=== PATIENT | female | born 1975 | race Caucasian/White ===

== ENCOUNTER 2023-04-15 12:02 | Outpatient (OUT) | payer OTHER, SELFPAY ==
[2023-04-15 12:33] LABS: Basophils Absolute Auto 0.1 10^3/uL (0.0-0.1); Basophils Percent Auto 0.4 % (0.2-2.0); Eosinophils Absolute Auto 0.4 10^3/uL (0.0-0.7); Eosinophils Percent Auto 2.7 % (0.9-7.0); Hemoglobin 13.9 g/dL (12.0-16.0); Immature Granulocytes Abs Auto 0.12 10^3/uL (0.00-0.03); Immature Granulocytes Pct Auto 0.8 % (0.0-0.5); Lymphocytes Absolute Auto 4.7 10^3/uL (1.2-3.8); Lymphocytes Percent Auto 29.9 % (20.5-60.0); Mean Corpuscular HGB Conc 31.6 g/dL (29.9-35.2); Mean Corpuscular Hemoglobin 27.5 pg (26.7-34.0); Mean Corpuscular Volume 87.1 fL (81.0-99.0); Mean Platelet Volume 10.6 fL (9.5-13.5); Monocytes Absolute Auto 1.4 10^3/uL (0.3-0.8); Monocytes Percent Auto 8.7 % (1.7-12.0); Neutrophils Percent Auto 57.5 % (43.0-75.0); Platelet Count 444 10^3/uL (150-450); Red Blood Count 5.05 10^6/uL (4.20-5.40); Red Cell Distribution Width 14.5 % (11.0-15.0); White Blood Count 15.7 10^3/uL (4.0-11.0)
[2023-04-15 13:17] LABS: Estimated Average Glucose 266 mg/dL; Glycohemoglobin A1C 10.9 % (4.5-6.2)
[2023-04-15 13:39] LABS: Alanine Aminotransferase 37 U/L (14-59); Albumin Globulin Ratio 0.9; Albumin Level 3.3 g/dL (3.4-5.0); Alkaline Phosphatase 144 U/L (46-116); Anion Gap 14.8; Aspartate Amino Transferase 27 U/L (15-37); BUN Creatinine Ratio 8.2; Bilirubin Total 0.3 mg/dL (0.2-1.0); Calcium 9.4 mg/dL (8.5-10.1); Carbon Dioxide 30.8 mmol/L (21.0-32.0); Chloride 98 mmol/L (98-107); Chol HDL Ratio 4.2; Cholesterol 139 mg/dL (<=200); Estimated GFR (African America >60 (>=60); Estimated GFR (Non-African Ame >60 (>=60); Free T3 3.22 pg/mL (2.18-3.98); Globulin 3.5 g/dL; Glucose 197 mg/dL (74-106); HDL Cholesterol 33 mg/dL (40-60); Potassium 4.6 mmol/L (3.5-5.1); Sodium 139 mmol/L (136-145); Thyroid Stimulating Hormone 2.946 uIU/mL (0.358-3.740); Total Protein 6.8 g/dL (6.4-8.2); Triglycerides 258 mg/dL (<=150); VLDL CHOLESTEROL 51.6 mg/dL
[2023-04-16 12:12] LABS: Insulin 35.4 uIU/mL (2.6-24.9)
== END 2023-04-15 12:03 | disposition home or self-care (01) ==
LOC: LAB 12:06
PROVIDERS: PCP Family Medicine; Visit Provider Family Medicine
DX: R31.0 Gross hematuria (principal); R06.00 Dyspnea, unspecified; E11.9 Type 2 diabetes mellitus without complications; K21.9 Gastro-esophageal reflux disease without esophagitis; I87.2 Venous insufficiency (chronic) (peripheral); I47.1 Supraventricular tachycardia; Z12.12 Encounter for screening for malignant neoplasm of rectum; D64.9 Anemia, unspecified; E55.9 Vitamin D deficiency, unspecified; I11.0 Hypertensive heart disease with heart failure; I50.30 Unspecified diastolic (congestive) heart failure
CPT/HCPCS: 36415; 80053; 80061; 82306; 83036; 83525; 83540; 83880; 84436; 84443; 84481; 85025

== ENCOUNTER 2024-03-25 12:48 | Outpatient (OUT) | payer OTHER, SELFPAY ==
--- NOTE | 2024-03-25 12:50 | VEIN_ITS ---
Patient Name: DARRIAN QUIROZ MR#: [id number] : 1975 Exam Date: 03/25/2024 Ordering Doctor: DR HELIO STEWART M.D. RADIOLOGY REPORT PROCEDURE: VC EXT VENOUS REFLUX SHAWANDA LMTD COMPARISON: None. INDICATIONS: R60.0 Bilateral leg edema TECHNIQUE: Duplex imaging of the lower extremity to assess the deep and superficial venous system for the presence of deep or superficial venous incompetence and to document the location and severity of disease. The study includes evaluation of the great saphenous vein (GSV), anterior accessory saphenous vein (AASV) and small saphenous vein (SSV). Patient scanned in reverse Trendelenburg and standing. FINDINGS: RIGHT LOWER EXTREMITY: Saphenofemoral Junction Reflux: Yes 7.1mm 2.0 sec GSV: Diam (mm) Reflux/ Time (sec) Proximal Thigh 7.2 Yes 1.6 Mid Thigh 4.7 Yes 1.5 Distal Thigh 4.7 No Prox Calf 3.2 No Mid Calf 2.8 No Saphenopopliteal Junction Reflux: 5.5mm Yes 0.5 SSV: Proximal Calf 3.5 Yes 0.5 Mid Calf 2.6 No AASV: Proximal Thigh 5.5 Yes 0.7 Mid Thigh 4.4 Yes 0.7 Distal Thigh Thrombi: No acute or chronic thrombus visualized Compressibility: Normal Flow: Deep vein reflux visualized in rt CFV for 1.6s and DFV for 0.7s. Preforator: Dist/med calf 2.4mm with 0.6s reflux. Mid/med thigh 2.6mm with 0.5s reflux. Tech Note: Incompetent GSV and AASV. Patent varicose vein mid/med calf 4.6mm with 0.7s reflux. Patent varicose vein prox/med calf 3.5mm with 1.2s reflux. Patent varicose vein arising off of mid/med thigh AASV. 3.4mm with 0.8s reflux. LEFT LOWER EXTREMITY: Saphenofemoral Junction Reflux: mm sec GSV: Diam (mm) Reflux/Time (sec) Proximal Thigh N/A Mid Thigh N/A Distal Thigh N/A Prox Calf N/A Mid Calf N/A Saphenopopliteal Junction Relux: 3.5 mm No SSV: Proximal Calf 2.1 Yes 0.9 Mid Calf 2.1 No AASV: Proximal Thigh 4.2 No Mid Thigh 2.5 No Distal Thigh Thrombi: No acute or chronic thrombus visualized Compressibility: Normal Flow: Normal Tripoler: Dist/med calf 4.5mm with 0.9s reflux. Tech Note: GSV was previously treated with EVLT in 2021. Patent varicose vein mid/med calf 4.5mm with 0.7s reflux. Patent varicose vein prox/med calf 3.5mm with 0.6s reflux. CONCLUSION: 1. Abnormally dilated and incompetent right great saphenous vein with associated branch saphenous varicosities. 2. Left calf awning erector vein feeding a large dilated and incompetent varicosity; corresponding to patient's area of pain. Dictated by: Bret Francis M.D. on 03/25/2024 at 13:45 Approved by: Bret Francis M.D. on 03/25/2024 at 14:54
--- NOTE | 2024-03-25 12:52 | VEIN_ITS ---
Patient Name: DARRIAN QUIROZ MR#: [id number] : 1975 Exam Date: 03/25/2024 Ordering Doctor: DR HELIO STEWART M.D. RADIOLOGY REPORT PROCEDURE: VC FACILITY EST COMPREHENSIVE [facility]IN [facility] - OFFICE VISIT INITIAL COMPARISON: None. PROGRESS NOTES: [age] year old female who presents with a 2 year history of lower extremity swelling, edema, and leg pain. The patient's left leg symptoms are worse than the right. There has been a progression of symptoms over time. This increases with prolonged leg dependency. The patient describes an improvement with rest, elevation, support stockings, and medication. The patient denies any signs and symptoms to suggest arterial ischemia. The patient describes a family history : Unknown (patient is adopted). The patient has drinking and smoking history of long-term smoking; no alcohol consumption. Patient has a past medical history significant for superficial thrombophlebitis. The patient denies a history of deep venous thrombus or pulmonary embolus. See separate history and physical for medication list. Prior treatment for varicose or spider veins. Current use of compression stockings. After review of nurse notes, history and physical exam I discussed at length the pathophysiology of venous hypertension and possible treatments, therapies and strategies available. We discussed at length the importance of elevating the lower extremities above the level of the heart, increased physical activity and compression stocking use. Ultrasound venous reflux study performed today was discussed at length with the patient. The report demonstrates abnormally dilated incompetent right great saphenous vein. Prominent incompetent java lead vein within left calf feeding a large varicosity which corresponds to patient's area of discomfort. PHYSICAL EXAM: The right leg demonstrates a few varicosities, scattered spider veins, no ulceration, mild edema, mild skin discoloration. The left leg demonstrates no significant varicosities, a few spider veins, no ulceration, no edema, mild skin discoloration. Both thighs, legs and feet were symmetrically warm to the touch. Good posterior tibial and dorsalis pedis pulses were present bilaterally. VEIN/VC Facility EST Comprehensive IMPRESSION: 1. Bilateral lower extremity venous insufficiency with a large varicose vein fed by java lead vein within the left calf corresponding to patient's area of calf pain and primary concern. 2. Bilateral lower extremity varicose veins 3. Right greater than left lower extremity subcutaneous edema 4. No flow significant arterial disease 5. CEAP: C4 a, EP, AP, IA PLAN: 1. Continued use of compression stockings 2. Elevated legs and increased physical activity symptomatic relief 3. Microfoam chemical ablation of left calf incompetent varicosity which corresponds to patient's area of concern and discomfort. 4. Patient will follow-up in future when she is ready for treatment of right leg. Nurse notes, history and physical were reviewed and confirmed, see attached forms. The nurse was present throughout the physical exam and consultation Dictated by: Bret Francis M.D. on 03/25/2024 at 14:59 Approved by: Bret Francis M.D. on 03/25/2024 at 15:06
== END 2024-03-25 12:49 | disposition home or self-care (01) ==
LOC: VC 12:49
PROVIDERS: PCP Family Medicine; Visit Provider Radiology Diagnostic Radiology
DX: R60.0 Localized edema (principal); I83.813 Varicose veins of bilateral lower extremities with pain
CPT/HCPCS: 93970; G0463

== ENCOUNTER 2024-08-02 14:57 | Outpatient (OUT) | payer OTHER, SELFPAY ==
--- NOTE | 2024-08-02 | XR_ITS ---
The [address] [address] Patient Name: DARRIAN QUIROZ MRN: [id number] date: 1975 Sex: F Assigned Patient Location: Current Patient Location: Accession/Order Number: [id number] Exam Date: 08/02/2024 14:58 Report Date: 08/05/2024 06:30 At the request of: AMELIA IBARRA Procedure: XR knee LT 4V PROCEDURE: XR knee LT 4V HISTORY: LEFT KNEE PAIN COMPARISON: None. FINDINGS: BONES:Slight narrowing of the medial joint space. Small degenerative osteophytes along the articular margins of the medial compartment and patella. SOFT TISSUES:No visible soft tissue swelling. EFFUSION:Small joint effusion. OTHER: Negative. XR/XR knee LT 4V IMPRESSION: 1. Small joint effusion and mild degenerative joint disease. Electronically authenticated by: BRADLEY JOHN Date: 08/05/2024 06:30
== END 2024-08-02 14:58 | disposition home or self-care (01) ==
LOC: EC 14:58
PROVIDERS: PCP Family Medicine; Visit Provider Student in an Organized Health Care Education/Training Program
DX: M25.562 Pain in left knee (principal); M25.462 Effusion, left knee
CPT/HCPCS: 73564

== ENCOUNTER 2024-08-18 13:53 | Outpatient (OUT) | payer OTHER, SELFPAY ==
--- NOTE | 2024-08-18 13:56 | MR_ITS ---
The [place] [id number] Patient Name: DARRIAN QUIROZ MRN: [id number] date: 1975 Sex: F Assigned Patient Location: MRI Current Patient Location: Accession/Order Number: [id number] Exam Date: 08/18/2024 14:00 Report Date: 08/20/2024 05:00 At the request of: AMELIA IBARRA Procedure: MR knee LT wo con EXAMINATION: MR knee LT wo con HISTORY: internal derangement of left knee COMPARISON: No relevant comparison available. TECHNIQUE: A complete multi-planar MRI was performed. FINDINGS: MEDIAL COMPARTMENT MEDIAL MENISCUS: No visible tear or significant degeneration. CARTILAGE: No visible defect. BONES: No marrow pathology, fracture, or significant arthropathy. MCL AND MEDIAL CAPSULE: Minimal strain of medial collateral ligament. LATERAL COMPARTMENT LATERAL MENISCUS: Small radial tear of the mid body. CARTILAGE: No visible defect. BONES: No marrow pathology, fracture, or significant arthropathy. LCL/POSTEROLAT COMPLEX: Normal lateral collateral ligament, fascicles, lateral capsule and ligaments. ANTERIOR COMPARTMENT PATELLA: No marrow pathology, fracture, or significant arthropathy. CARTILAGE: No visible defect. TENDONS: Normal. EFFUSION: Small joint effusion. ACL: Normal appearing ligament. PCL: Normal appearing ligament. MENISCOFEMORAL: Normal meniscofemoral ligaments. OTHER: Negative. MR/MR knee LT wo con IMPRESSION: 1. Minimal strain of medial collateral ligament. 2. Small radial tear involving mid body of LATERAL meniscus. 3. Small joint effusion. Electronically authenticated by: BRADLEY JOHN Date: 08/20/2024 05:00
== END 2024-08-18 13:54 | disposition home or self-care (01) ==
LOC: MRI 13:53
PROVIDERS: PCP Family Medicine; Visit Provider Student in an Organized Health Care Education/Training Program
DX: M25.562 Pain in left knee (principal); M23.92 Unspecified internal derangement of left knee; S83.282A Other tear of lateral meniscus, current injury, left knee, initial encounter; M25.462 Effusion, left knee
CPT/HCPCS: 73721

== ENCOUNTER 2024-12-13 12:43 | Outpatient (OUT) | payer OTHER, SELFPAY ==
--- NOTE | 2024-12-13 12:45 | ECG_ITS ---
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 Measurements Intervals [place] Rate: 63 P: 36 DC: 129 QRS: 19 QRSD: 93 T: 5 QT: 408 QTc: 418 Interpretive Statements SINUS RHYTHM POSSIBLE RIGHT VENTRICULAR CONDUCTION DELAY [RSR (QR) IN V1/V2] Otherwise normal ECG Compared to ECG 10/11/2019 05:35:16 No significant changes Electronically Signed On 12-13-2024 17:46:01 EDT by BARRERA FOX M.D.
--- NOTE | 2024-12-13 12:45 | XR_ITS ---
The [address] [address] Patient Name: DARRIAN QUIROZ MRN: [id number] date: 1975 Sex: F Assigned Patient Location: [facility] Current Patient Location: [facility] Accession/Order Number: [id number] Exam Date: 12/13/2024 17:26 Report Date: 12/13/2024 17:26 At the request of: AMELIA IBARRA MD Procedure: XR chest 2V Plain film chest Single view HISTORY: Presurgical assessment COMPARISON: 10/10/2019 FINDINGS: SUPPORT DEVICES: None POSTSURGICAL CHANGES: None HEART: Within normal limits PULMONARY SUKUMAR: Within normal limits MEDIASTINUM: Unremarkable LUNGS AND PLEURA: No acute lung process, pleural effusion or pneumothorax identified. BONY STRUCTURES: Intact ADDITIONAL FINDINGS None XR/XR chest 2V IMPRESSION: No acute process. Impression dictated by: Yonatan Bran M.D.12/13/2024 5:26 PM Dictation Location: [place] [address] Electronically authenticated by: [id number] Y Date: 12/13/2024 17:26
--- NOTE | 2024-12-13 13:46 | PM.PRESUREVA ---
History of Present Illness History of Present Illness Chief complaint: LATERAL MENISCUS TEAR LEFT KNEE Narrative: Mrs. Viola Hernandez is a pleasant 49-year-old female presents to presurgical testing with complaints of pain to the left knee and associated left knee swelling. She has been evaluated by Dr. Larsen and is scheduled for left knee arthroscopy with partial lateral meniscectomy on December 27, 2024 for diagnosis of tear of the lateral meniscus of the left knee. Review of Systems ROS Narrative REVIEW OF SYSTEMS: Negative except as stated in HPI, ten or more systems reviewed. Constitutional: No fever, chills, weakness ENT: No sore throat or epistaxis Cardiovascular: No edema, chest pain, palpitations, or activity intolerance Respiratory: No shortness of breath, cough, or wheezing Musculoskeletal: Complaints of left knee swelling and pain Gastrointestinal: No abdominal pain, constipation, diarrhea, or vomiting Genitourinary: No dysuria or hematuria Neurological: No numbness, tingling, weakness, or headache Psychiatric: No mood changes PFSH PFSH Medical History (Updated 12/13/24 @ 13:50 by Delma Cramer) Family history not known due to adoption ?Z78.9 - Other specified health status (ICD-10) Fusion of spine ?M43.20 - Fusion of spine, site unspecified (ICD-10) Osteoarthritis ?M19.90 - Unspecified osteoarthritis, unspecified site (ICD-10) PVD (peripheral vascular disease) ?I73.9 - Peripheral vascular disease, unspecified (ICD-10) Mitral valve prolapse ?I34.1 - Nonrheumatic mitral (valve) prolapse (ICD-10) Surgical History (Updated 12/13/24 @ 13:39 by Delma Cramer) History of knee surgery ?Z98.890 - Other specified postprocedural states (ICD-10) History of endometrial ablation ?Z98.890 - Other specified postprocedural states (ICD-10) History of section ?Z98.891 - History of uterine scar from previous surgery (ICD-10) History of carpal tunnel release ?Z98.890 - Other specified postprocedural states (ICD-10) History of foot surgery ?Z98.890 - Other specified postprocedural states (ICD-10) Social History (Updated 12/13/24 @ 13:05 by Delma Cramer) Within the past year, how often did you have a drink containing alcohol: never Score interpretation: A score less than 3 is consistent with normal alcohol consumption. Smoking status: Former smoker Do you use any of these nicotine containing products: vaping products Non-prescribed substance use: denies use Previous occupational history: [employer] Highest level of school completed/degree received: high school graduate Meds Home Medications and Allergies Home Medications ?Medication ?Instructions ?Recorded ?Confirmed ?Type aspirin 81 mg chewable tablet 81 mg PO DAILY 12/13/24 12/13/24 History (Aspirin Childrens) atorvastatin 40 mg tablet 40 mg PO BEDTIME 12/13/24 12/13/24 History buprenorphine 20 mcg/hour weekly 1 patch transdermal Q7D 12/13/24 12/13/24 History transdermal patch (Butrans) gabapentin 600 mg tablet 600 mg PO BEDTIME 12/13/24 12/13/24 History hydroxyzine HCl 25 mg tablet 25 mg PO BEDTIME 12/13/24 12/13/24 History insulin aspart U-100 100 unit/mL 1 sliding scale dose subcut TID 12/13/24 12/13/24 History (3 mL) subcutaneous pen lansoprazole 30 mg capsule,delayed 30 mg PO BID 12/13/24 12/13/24 History release meloxicam 15 mg tablet 15 mg PO PRN PRN pain 12/13/24 12/13/24 History metformin 500 mg tablet 500 mg PO BID 12/13/24 12/13/24 History metoprolol tartrate 50 mg tablet 50 mg PO Q12H 12/13/24 12/13/24 History mirtazapine 45 mg tablet 45 mg PO BEDTIME 12/13/24 12/13/24 History tizanidine 4 mg tablet 4 mg PO BEDTIME 12/13/24 12/13/24 History tolterodine 4 mg capsule,extended 4 mg PO BEDTIME 12/13/24 12/13/24 History release 24 hr Allergies Allergy/AdvReac Type Severity Reaction Status Date / Time cephalexin (From Keflex) Allergy Intermediate Hives Verified 12/13/24 12:56 erythromycin base Allergy Intermediate Hives Verified 12/13/24 12:56 Penicillins Allergy Intermediate Hives Verified 12/13/24 12:56 Sulfa (Sulfonamide Allergy Intermediate Hives Verified 12/13/24 12:56 Antibiotics) Exam Narrative Exam Narrative: Constitutional: Awake, alert, comfortable, well-appearing, nontoxic, interactive, vital signs as charted Head: Normocephalic, atraumatic Eyes: Conjunctiva and lids normal to inspection, pupils normal ENT: Tympanic membranes pearly palma, nonerythematous, noninjected, naris patent, posterior oropharynx clear, oral mucosa moist Neck: Supple, normal appearance, normal range of motion, no meningeal signs, no lymphadenopathy Respiratory: No respiratory distress, breath sounds clear Cardiovascular: Regular rate and rhythm, strong and regular heart tones Abdomen: Nontender, normal bowel sounds, soft, no CVA tenderness Musculoskeletal: Antalgic gait favoring left lower extremity tenderness with palpation to the left medial joint line pain with extension of the left knee. She also has notable left lower extremity 1+ pitting edema and a history of peripheral vascular disease to the left lower extremity Skin: No rashes or induration, no lesions, only visible skin inspected Neuro: No neurological deficits, normal sensation Psychiatric: Oriented ?3, normal affect Assessment and Plan Assessment and Plan (1) Tear of lateral meniscus of left knee: Plan Left knee arthroscopy with partial lateral meniscectomy scheduled with Dr. Larsen on 12/27/2024
[2024-12-13 13:55] LABS: Hematocrit 37.5 % (36.0-48.0); Hemoglobin 12.2 g/dL (12.0-16.0); Mean Corpuscular HGB Conc 32.5 g/dL (29.9-35.2); Mean Corpuscular Hemoglobin 29.5 pg (26.7-34.0); Mean Corpuscular Volume 90.8 fL (81.0-99.0); Mean Platelet Volume 10.1 fL (9.5-13.5); Platelet Count 353 10^3/uL (150-450); Red Blood Count 4.13 10^6/uL (4.20-5.40); Red Cell Distribution Width 14.6 % (11.0-15.0); White Blood Count 12.8 10^3/uL (4.0-11.0)
[2024-12-13 14:26] LABS: Anion Gap 11.5; BUN Creatinine Ratio 9.9; Calcium 8.9 mg/dL (8.5-10.1); Carbon Dioxide 29.5 mmol/L (21.0-32.0); Chloride 107 mmol/L (98-107); Estimated GFR (African America >60 (>=60 mL/min/1.73m^2); Estimated GFR (Non-African Ame >60 (>=60 mL/min/1.73m^2); Glucose 128 mg/dL (74-106); Sodium 144 mmol/L (136-145)
[2024-12-13 14:34] LABS: Basophils Abs Manual 0.12 10^3/uL (0.00-0.10); Eosinophils Absolute Manual 0.64 10^3/uL (0.00-0.70); Lymphocytes Absolute Manual 5.24 10^3/uL (1.20-3.80); Monocytes Absolute Manual 0.51 10^3/uL (0.30-0.80); Segmented Neut Absolute Manual 6.27 10^3/uL (1.4-6.5)
== END 2024-12-13 12:44 | disposition home or self-care (01) ==
LOC: PST 12:44
PROVIDERS: PCP Family Medicine; Visit Provider Student in an Organized Health Care Education/Training Program
DX: Z01.810 Encounter for preprocedural cardiovascular examination (principal); Z01.812 Encounter for preprocedural laboratory examination; Z01.818 Encounter for other preprocedural examination; S83.282A Other tear of lateral meniscus, current injury, left knee, initial encounter
CPT/HCPCS: 71046; 80048; 85007; 85027; 93005; G0463

== ENCOUNTER 2024-12-27 09:35 | Day surgery (SDC) | payer OTHER, SELFPAY ==
[2024-12-13 13:05] VITALS: BP 151/87; PULSE 73; TEMP 36.3; O2SAT 98; BMI 33.0
[2024-12-27] VITALS (8 sets, daily range): BP systolic 134–155; BP diastolic 75–104; PULSE 72–86; TEMP 36.1–36.2; O2SAT 94–99; BMI 33.0
[2024-12-27 09:58] LABS: Glucometer 174 mg/dL (74-106)
[2024-12-27 10:03] LABS: HCG Qualitative NEGATIVE (NEGATIVE); Internal Control Within Normal Limits
[2024-12-27] MEDS: LACTATED RINGER'S SOLUTION 1,000 ML 50 ML IV (10:16)
[2024-12-27] MEDS: CLINDAMYCIN PHOSPHATE/D5W 900 MG/50 ML PREMIX 100 MG IV (10:39)
[2024-12-27] MEDS: BUPIVACAINE HCL 0.5% PF 50 MG/10 ML VIAL INJ (11:28)
[2024-12-27] MEDS: LIDOCAINE HCL 1%-EPINEPHRINE 1:100,000 20 ML MDV INJ (11:28)
--- NOTE | 2024-12-27 12:01 | PM.ORPRC ---
Procedure Note Date of procedure: 12/27/24 Pre-op diagnosis: Left knee lateral meniscus tear Post-op diagnosis: same as pre-op Procedure: Patient is a 49-year-old female the presents today for left knee arthroscopy with partial lateral meniscectomy. Patient has history of chronic left knee pain. Has not improved with conservative management. Does have a history of prior knee arthroscopy with partial meniscectomy. Ordered repeat MRI which did demonstrate a small radial tear in the lateral meniscus. We did discuss treatment options. She wishes to proceed forth arthroscopy. We did discuss risk and benefits of surgery including but not limited to bleeding, blood clots or infection, wound healing complications, damage surrounding structures, loss of limb and life. Patient understands wished to proceed. Patient was taken back to the operative suite. Transferred to the operative table. Underwent anesthesia induction the patient without complications. Then proceeded to isolate and prepped out the left lower extremity in the usual sterile fashion. Patient was given clinda 900 for antibiosis. Proceeded to have a timeout the patient, procedure, operative site was confirmed. We then proceeded with exsanguinating the limb. We then inflated the tourniquet. We made a lateral portal with the 11 blade. Inserted the arthroscope. Then quickly established a medial viewing portal utilizing a spinal needle. 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 Lateral gutter demonstrated no abnormalities. There was a small radial tear of the lateral meniscus that was noted to be somewhat on the fraying and scar tissue within the intercondylar notch but no significant tear. We then entered the medial compartment which demonstrated grade II chondromalacia. We probed the medial meniscus which was stable. There was some mild cartilage fraying. We then utilized the shaver to debride the intercondylar notch. Scar tissue was removed. We also examined the lateral compartment again which demonstrated grade II chondromalacia. The lateral meniscus was trimmed back with a arthroscopic biter followed by a shaver to smooth out the overall the knee looked to be in good condition at her age and arthritis was mild. The portal sites were then closed with 3-0 nylon. Injected with quarter percent Marcaine plain with epi. Soft sterile dressing was applied. Patient was taken the PACU in stable condition . Tourniquet time was 25 minutes. Dressings remain in place for 7 days followed by Band-Aid. Arthroscopic photos discharged with Anesthesia: General-LMA Surgeon: Nguyễn Musa Estimated blood loss (mL): 5 IV fluids (mL): 200 Urine output (mL): 0 Pathology: none sent Condition: stable Disposition: PACU
[2024-12-27] MEDS: HYDROCODONE/ACET 5-325 MG TABLET 1 TAB PO (12:21)
--- NOTE | 2024-12-27 12:57 | PC.NURSE ---
Medicated with oral narcotic pain medication as ordered
== END 2024-12-27 12:59 | disposition home or self-care (01) ==
PROVIDERS: Anesthesiology; PCP Family Medicine; Visit Provider Student in an Organized Health Care Education/Training Program
PROC: (CPT 1400; principal; 2024-12-27 11:00)
DX: S83.282A Other tear of lateral meniscus, current injury, left knee, initial encounter (principal); M94.262 Chondromalacia, left knee; X58.XXXA Exposure to other specified factors, initial encounter; Z98.1 Arthrodesis status; F17.290 Nicotine dependence, other tobacco product, uncomplicated; E78.5 Hyperlipidemia, unspecified; I10 Essential (primary) hypertension; E11.51 Type 2 diabetes mellitus with diabetic peripheral angiopathy without gangrene; Z79.4 Long term (current) use of insulin; Z79.84 Long term (current) use of oral hypoglycemic drugs; K21.9 Gastro-esophageal reflux disease without esophagitis
CPT/HCPCS: 29881; 36415; 82948; 84703; J0131; J0665; J0736; J1100; J1885; J2250; J2405; J2704; J3010